=== PATIENT | male | born 1990 | race Caucasian/White ===

== ENCOUNTER 2018-05-06 21:47 | Emergency (ER) | payer MEDICAID, OTHER ==
[~2018-05-06] VITALS: Ht 177.8 cm; Wt 63.5 kg
[2018-05-07 00:21] VITALS: BP 129/76
== END 2018-05-07 01:06 | disposition home or self-care (01) ==
LOC: ER 21:47
DX: G44.209 Tension-type headache, unspecified, not intractable (principal); J30.9 Allergic rhinitis, unspecified
CPT/HCPCS: 70450; 70480; 72125

== ENCOUNTER 2018-06-29 17:08 | Emergency (ER) | payer MEDICAID ==
[~2018-06-29] VITALS: Ht 175.3 cm; Wt 61.2 kg
[2018-06-29 17:53] VITALS: BP 127/80
== END 2018-06-29 18:07 | disposition home or self-care (01) ==
LOC: ER 17:14
DX: K04.7 Periapical abscess without sinus (principal)

== ENCOUNTER 2018-10-05 21:20 | Emergency (ER) | payer MEDICAID | END 2018-10-05 22:04 | disposition left against medical advice (07) | LOC: ER 21:23 | DX: F41.9 Anxiety disorder, unspecified (principal); Z53.21 Procedure and treatment not carried out due to patient leaving prior to being seen by health care provider ==